=== PATIENT | male | born 1975 | race Caucasian/White ===

== ENCOUNTER 2017-05-11 19:00 | Emergency (ER) | payer SELFPAY ==
[2017-05-11 21:49] VITALS: BP 138/74
== END 2017-05-11 21:49 | disposition home or self-care (01) ==
LOC: ED 19:00
DX: S46.912A Strain of unspecified muscle, fascia and tendon at shoulder and upper arm level, left arm, initial encounter (principal); W18.2XXA Fall in (into) shower or empty bathtub, initial encounter; Y93.89 Activity, other specified; Y99.8 Other external cause status; Y92.89 Other specified places as the place of occurrence of the external cause

== ENCOUNTER 2017-06-24 18:07 | Emergency (ER) | payer SELFPAY ==
[2017-06-24 22:21] VITALS: BP 136/89
== END 2017-06-24 21:45 | disposition short-term general hospital (02) ==
LOC: ED 18:07
DX: R20.0 Anesthesia of skin (principal)
CPT/HCPCS: Q9967

== ENCOUNTER 2018-01-23 18:09 | Emergency (ER) | payer SELFPAY ==
[~2018-01-23] VITALS: Ht 172.7 cm; Wt 104.8 kg
[2018-01-23 18:25] VITALS: Ht 172.7 cm; Wt 104.8 kg
[2018-01-23 19:58] VITALS: BP 129/76
== END 2018-01-23 19:58 | disposition home or self-care (01) ==
LOC: ED 18:09
DX: S83.91XA Sprain of unspecified site of right knee, initial encounter (principal); S93.401A Sprain of unspecified ligament of right ankle, initial encounter; X50.1XXA Overexertion from prolonged static or awkward postures, initial encounter; Y93.64 Activity, baseball; Y92.89 Other specified places as the place of occurrence of the external cause; Y99.8 Other external cause status
CPT/HCPCS: Q0092

== ENCOUNTER 2018-11-27 14:41 | Emergency (ER) | payer MEDICAID ==
[~2018-11-27] VITALS: Ht 177.8 cm; Wt 108.4 kg
[2018-11-27 14:53] VITALS: Ht 177.8 cm; Wt 108.4 kg
[2018-11-27 15:50] LABS: BASOPHIL % 0.7 % (0-2); PLATELET COUNT 198 x10^3mcL (130-400); RED CELL DISTRIBUTION WIDTH 12.6 % (11.5-14.5)
[2018-11-27 16:04] LABS: CALCIUM 8.8 mg/dL (8.5-10.1); CARBON DIOXIDE 26.6 mmol/L (21-32); CHLORIDE SERUM 105 mmol/L (98-107); GFR1 > 60 mL/min; GLUCOSE SERUM 86 mg/dL (74-106); SODIUM SERUM 140 mmol/L (136-145)
[2018-11-27 16:08] LABS: ALBUMIN 3.7 g/dL (3.4-5.0); ALKALINE PHOSPHATASE 85 U/L (46-116); ALT/SGPT 31 U/L (16-63); AST/SGOT 22 U/L (15-37); BILIRUBIN TOTAL 0.33 mg/dL (0.20-1.00); LIPASE 124 IU/L (73-393); TOTAL PROTEIN, SERUM 7.3 g/dL (6.4-8.2)
[2018-11-27 17:45] VITALS: BP 141/94
== END 2018-11-27 17:45 | disposition home or self-care (01) ==
LOC: ED 14:41
PROVIDERS: Emergency Medicine
DX: K80.70 Calculus of gallbladder and bile duct without cholecystitis without obstruction (principal)
CPT/HCPCS: J2270; J2405; J7030; Q0092